=== PATIENT | male | born 2000 | race African-American/Black ===

== ENCOUNTER 2020-04-01 15:58 | Emergency (ER) | payer MEDICAID ==
[~2020-04-01] VITALS: Ht 172.7 cm; Wt 79.5 kg
[2020-04-01 16:17] VITALS: BP 102/50
[2020-04-01] MEDS ORDERED: TETanus/Pertussis (Acell)/Diphther VAC/PF (Tdap-Adult) 0.5ml syringe IMVAC ONE (17:00)
[2020-04-01] MEDS ORDERED: LIDOcaine 1% W/epiNEPHrine 1:200,000 10ml vial IJ ONE (17:00)
[2020-04-01] MEDS ORDERED: bacitracin 15gm ointment TP ONE (17:00)
== END 2020-04-01 17:51 | disposition home or self-care (01) ==
LOC: ER 15:58
DX: S51.812A Laceration without foreign body of left forearm, initial encounter (principal); W26.0XXA Contact with knife, initial encounter; Y93.89 Activity, other specified; Y92.89 Other specified places as the place of occurrence of the external cause; Y99.8 Other external cause status
CPT/HCPCS: 12002; 90471; 90715; 99283

== ENCOUNTER 2020-04-13 19:23 | Emergency (ER) | payer MEDICAID ==
[~2020-04-13] VITALS: Ht 172.7 cm; Wt 68.0 kg
[2020-04-13 19:23] VITALS: BP 111/49
== END 2020-04-13 19:54 | disposition home or self-care (01) ==
LOC: ER 19:23
DX: S51.812D Laceration without foreign body of left forearm, subsequent encounter (principal); X58.XXXD Exposure to other specified factors, subsequent encounter
CPT/HCPCS: 99281